=== PATIENT | male | born 1980 | race African-American/Black ===

== ENCOUNTER 2023-06-08 03:32 | Emergency (ER) | payer OTHER, MEDICAID ==
[~2023-06-08] VITALS: Ht 182.9 cm; Wt 95.0 kg
[2023-06-08 03:40] VITALS: BP 102/80; PULSE 86; RESP 24; O2SAT 97
== END 2023-06-08 06:13 | disposition home or self-care (01) ==
LOC: ER 03:32
DX: F10.129 Alcohol abuse with intoxication, unspecified (principal); J45.909 Unspecified asthma, uncomplicated; Y90.0 Blood alcohol level of less than 20 mg/100 ml
CPT/HCPCS: 99283